=== PATIENT | male | born 1960 | race African-American/Black ===

== ENCOUNTER 2017-03-17 13:28 | Emergency (ER) | payer MEDICARE, MEDICAID ==
[~2017-03-17] VITALS: Ht 172.7 cm; Wt 143.0 kg
[2017-03-17 14:50] LABS: EOSINOPHILS % 1.1 % (0.0-5.0); HEMATOCRIT. 37.7 % (42.0-52.0); HEMOGLOBIN. 12.7 g/dL (14.0-18.0); LYMPHOCYTES % 34.9 % (20.0-50.0); MEAN CORPUSCULAR HEMOGLOBIN 29.7 pg (28.0-32.0); MEAN CORPUSCULAR VOLUME 88.4 fL (80.0-94.0); MEAN PLATELET VOLUME 7.3 fl (7.4-10.4); MONOCYTES % 11.2 % (2.0-8.0); NEUTROPHILS % 51.8 % (40.0-76.0); PLATELET 395 x1000/uL (130-400); RED BLOOD CELL COUNT 4.27 mill/uL (4.7-6.1); RED CELL DISTRIBUTION WIDTH 15.6 % (11.6-14.6)
[2017-03-17 14:55] LABS: PROTHROMBIN TIME 10.5 sec (9.4-11.6)
[2017-03-17 15:06] LABS: CHLORIDE 105 mEq/L (98-107); TROPONIN I < 0.02 ng/mL (0.00-0.04)
[2017-03-17 16:04] VITALS: BP 177/101
== END 2017-03-17 16:10 | disposition home or self-care (01) ==
LOC: ER 13:58
DX: M21.372 Foot drop, left foot (principal); D64.9 Anemia, unspecified; F17.200 Nicotine dependence, unspecified, uncomplicated; I10 Essential (primary) hypertension; R79.1 Abnormal coagulation profile; R53.1 Weakness; F12.10 Cannabis abuse, uncomplicated; Z98.890 Other specified postprocedural states
CPT/HCPCS: 36415; 71045; 80053; 83880; 84484; 85025; 85610; 93005; 99285

== ENCOUNTER 2018-03-23 09:59 | Emergency (ER) | payer MEDICARE, MEDICAID ==
[~2018-03-23] VITALS: Ht 172.7 cm; Wt 135.0 kg
[2018-03-23] MEDS ORDERED: ACETAMINOPHEN 325MG TABLET PO ONE (10:30)
[2018-03-23 13:29] VITALS: BP 157/100
== END 2018-03-23 13:55 | disposition home or self-care (01) ==
LOC: ER 09:59
DX: S93.602A Unspecified sprain of left foot, initial encounter (principal); M25.572 Pain in left ankle and joints of left foot; G82.22 Paraplegia, incomplete; I11.9 Hypertensive heart disease without heart failure; F17.200 Nicotine dependence, unspecified, uncomplicated; W05.0XXA Fall from non-moving wheelchair, initial encounter; X50.1XXA Overexertion from prolonged static or awkward postures, initial encounter; Y93.89 Activity, other specified; Y92.9 Unspecified place or not applicable; Z99.3 Dependence on wheelchair
CPT/HCPCS: 29515; 73610; 73630; 99283